=== PATIENT | female | born 1960 | race Caucasian/White ===

== ENCOUNTER 2019-07-28 11:11 | Outpatient (CLI) | payer OTHER, SELFPAY ==
--- NOTE | ~2019-07-28 | XR_ITS ---
EXAMINATION: XR lg joint inject/asp w image DATE: 07/28/2019 12:05 INDICATION: Left hip pain TECHNIQUE: A time-out was performed to verify the patient's name, date of , and procedure to b e performed. The procedure including the risks, benefits, and alternatives was discussed with the pat ient. Risks discussed included bleeding and infection. The patient understood the risks and agreed to proceed. The skin overlying the left hip joint was prepped and draped in usual sterile fashion. An esthetic was administered with 1% lidocaine subcutaneously. A 22 G needle was advanced under fluoros copic guidance into the joint. Injection of 0.8 mL of Omnipaque 240 confirmed intra-articular positi on of the needle. Subsequently, injectate consisting of 7 mm of a 5:2 mixture of 1% lidocaine:10 mg/ mL Kenalog for a total dose of 20 mg Kenalog was instilled. Washout of contrast was seen confirming i ntra-articular administration. The needle was removed and the entry site was cleaned and dressed. Th ere were no immediate complications. Fluoroscopy exposure time was 0.1 minutes. The total number of i mages was 2. FINDINGS: Real-time fluoroscopy demonstrates the needle in the left hip joint. Patient's pain prior t o procedure:3/10. Patient's pain following the procedure: 0/10. IMPRESSION: 1. Left hip joint injection of local anesthetic and steroid with decrease in the patient's presenting pain. Reviewed, dictated and finalized at location A. IMPRESSION: 1. Left hip joint injection of local anesthetic and steroid with decrease in th e patient's presenting pain.
== END 2019-07-28 11:12 | disposition home or self-care (01) ==
PROVIDERS: PCP Family Medicine Sports Medicine; Visit Provider Orthopaedic Surgery
DX: M25.552 Pain in left hip (principal)
CPT/HCPCS: 20610; 77002; J3301; Q9966

== ENCOUNTER 2019-12-23 10:21 | Outpatient (NON) | payer OTHER, SELFPAY ==
[2019-12-23 21:38] LABS: SARS-CoV-2 RNA PCR Positive
== END 2019-12-23 10:22 ==
PROVIDERS: PCP Family Medicine Sports Medicine; Visit Provider Family Medicine Sports Medicine
DX: U07.1 COVID-19 (principal)
CPT/HCPCS: 87635; C9803; U0003

== ENCOUNTER → 2020-04-25 16:12 | Outpatient (CLI) | payer OTHER, SELFPAY ==
--- NOTE | ~2020-04-25 | MM_ITS ---
EXAMINATION: MM screening hetal BI w jaycob HISTORY: Screening mammogram TECHNIQUE: Craniocaudal and mediolateral oblique 3-D tomosynthesis images were obtained and synthetic 2-D images were generated. CAD analysis was submitted and interpreted. COMPARISON: 04/25/2019 diagnostic bilateral digital mammogram and complete left breast ultrasound 07/20/2018 diagnostic left digital mammogram and limited left breast ultrasound 11/12/2017 diagnostic left digital mammogram and limited left breast ultrasound 11/05/2017 bilateral digital screening mammogram BREAST PARENCHYMAL COMPOSITION: The breasts are heterogeneously dense, which may obscure small masses .. FINDINGS: There is stable fibroglandular asymmetry. There are occasional bilateral benign microcalcif ications. There is a 1.4 cm circumscribed mass in the posterior mid to lower outer left breast, with halo sign, consistent with benign process, likely a cyst. There is no evidence of suspicious mass, calcificatio n, or architectural distortion to suggest malignancy in either breast. There has been no suspicious i nterval change. IMPRESSION: 1. No mammographic evidence of malignancy. 2. Recommend routine screening mammography in one year. BI-RADS Category 2: Benign finding(s). Reviewed, dictated and finalized at location A. R SERVICES MANAGER
== END ==
PROVIDERS: Visit Provider Obstetrics & Gynecology
DX: Z12.31 Encounter for screening mammogram for malignant neoplasm of breast (principal)
CPT/HCPCS: 77063; 77067

== ENCOUNTER → 2021-04-26 15:47 | Outpatient (CLI) | payer OTHER, SELFPAY ==
--- NOTE | ~2021-04-26 | MM_ITS ---
EXAMINATION: MM screening hetal BI w jaycob HISTORY: Screening mammogram TECHNIQUE: Craniocaudal and mediolateral oblique 3-D tomosynthesis images were obtained and synthetic 2-D images were generated. CAD analysis was submitted and interpreted. COMPARISON: 04/26/2019, 04/25/2019, 07/19/2018, 11/12/2017, 11/05/2017 BREAST PARENCHYMAL COMPOSITION: The breasts are heterogeneously dense, which may obscure small masses . FINDINGS: There are bilateral breast masses with a waxing and waning appearance, consistent with valarie gn findings. There is no evidence of suspicious mass, calcification, or architectural distortion to s uggest malignancy in either breast. There has been no suspicious interval change. IMPRESSION: 1. No mammographic evidence of malignancy. 2. Recommend routine screening mammography in one year. BI-RADS Category 2: Benign finding(s). Reviewed, dictated and finalized at location A. SERVICE TECHNICIAN
== END ==
PROVIDERS: Visit Provider Obstetrics & Gynecology
DX: Z12.31 Encounter for screening mammogram for malignant neoplasm of breast (principal)
CPT/HCPCS: 77063; 77067

== ENCOUNTER → 2022-06-27 17:12 | Outpatient (CLI) | payer OTHER, SELFPAY ==
--- NOTE | ~2022-06-27 | MM_ITS ---
EXAMINATION: MM screening hetal BI w jaycob HISTORY: Screening TECHNIQUE: Craniocaudal and mediolateral oblique 3-D tomosynthesis images were obtained and synthetic 2-D images were generated. CAD analysis was submitted and interpreted. COMPARISON: Comparison to multiple prior studies sequentially, with oldest reviewed study dated 05/2017. BREAST PARENCHYMAL COMPOSITION: The breasts are heterogeneously dense, which may obscure small masses FINDINGS: There are developing bilateral breast asymmetries centered in the upper outer quadrant of t he right breast and scattered throughout the left breast. IMPRESSION: 1. Developing bilateral breast asymmetries. 2. Additional mammographic views and possible breast ultrasound are recommended. BI-RADS Category 0: Incomplete: Needs additional imaging evaluation. Reviewed, dictated and finalized at location A. IMPRESSION: 1. Developing bilateral breast asymmetries. 2. Additional mammographic views and possible breast ultrasound are recommended . BI-RADS Category 0: Incomplete: Needs additional imaging evaluation.
== END ==
PROVIDERS: PCP Obstetrics & Gynecology; Visit Provider Obstetrics & Gynecology
DX: Z12.31 Encounter for screening mammogram for malignant neoplasm of breast (principal); R92.8 Other abnormal and inconclusive findings on diagnostic imaging of breast
CPT/HCPCS: 77063; 77067

== ENCOUNTER → 2022-07-03 08:57 | Outpatient (CLI) | payer OTHER, SELFPAY ==
--- NOTE | ~2022-07-03 | MM_ITS ---
EXAMINATION: MM diagnostic hetal BI w jaycob HISTORY: Follow-up bilateral breast asymmetries TECHNIQUE: Additional 3-D tomosynthesis images of the breasts were performed and synthetic 2-D images were generated. CAD analysis was submitted and interpreted. COMPARISON: Comparison to multiple prior studies sequentially, with oldest reviewed study dated 07/19. BREAST PARENCHYMAL COMPOSITION: The breasts are heterogeneously dense, which may obscure small masses FINDINGS: There are multiple bilateral breast masses and nodular asymmetries some of which are new, a lthough some are decreased in size compared with prior study. There are no suspicious calcifications or architectural distortion. IMPRESSION: 1. Multiple bilateral breast masses and nodular asymmetries. 2. Complete bilateral breast ultrasound recommended. BI-RADS Category 0: Incomplete: Needs additional imaging evaluation. Reviewed, dictated and finalized at location A.
== END ==
PROVIDERS: PCP Obstetrics & Gynecology; Visit Provider Obstetrics & Gynecology
DX: R92.8 Other abnormal and inconclusive findings on diagnostic imaging of breast (principal)
CPT/HCPCS: 77062; 77066; G0279

== ENCOUNTER → 2022-07-04 13:49 | Outpatient (CLI) | payer OTHER, SELFPAY ==
--- NOTE | ~2022-07-04 | US_ITS ---
US breast BI complete INDICATION: Multiple bilateral masses and asymmetries identified by mammography. TECHNIQUE: Dedicated complete bilateral breast ultrasound including all 4 quadrants in the subareolar locations COMPARISON: Comparison to multiple prior studies sequentially, with oldest reviewed study dated 12/2027. FINDINGS: Right breast: There are multiple simple and complicated cysts of the right breast. At 12:00, 2 cm fro m the nipple there is a round 4 mm hypoechoic mass without posterior features or internal vascularity . At 6:00, 2 cm from the nipple, there is an oval hypoechoic mass measuring 3 mm with parallel orient ation, no posterior features or internal vascularity. At 9:00, 2 cm from the nipple there is a round hypoechoic mass with low level internal echoes, subtle posterior acoustic enhancement and no internal vascularity. At 10:00, 5 cm from the nipple, there are 2 adjacent oval hypoechoic masses, largest me asuring 9 mm with low-level internal echoes, no posterior shadowing and no internal vascularity. Left breast: There are multiple simple and complicated cysts of the left breast. In addition the foll owing masses are seen: At 2:00, 4 cm from the nipple there is a round 6 mm mass with low level international sourcing manager al echoes, parallel orientation, no significant posterior features or internal vascularity. At 3:00, 3 cm from the nipple, there is an oval hypoechoic mass measuring 3 mm with parallel orientation, no s ignificant posterior features and no internal vascularity. IMPRESSION: 1: Multiple bilateral breast masses described above, most likely benign given their sonographic gato cteristics and multiplicity. Recommendation: Six-month follow-up diagnostic bilateral mammogram and ultrasound recommended. BI-RADS CATEGORY 3-PROBABLY BENIGN FINDING Reviewed, dictated and finalized at location A. IMPRESSION: 1: Multiple bilateral breast masses described above, most likely benign given t heir sonographic characteristics and multiplicity. Recommendation: Six-month follow-up diagnostic bilateral mammogram and ultrasou nd recommended. BI-RADS CATEGORY 3-PROBABLY BENIGN FINDING
== END ==
PROVIDERS: PCP Family Medicine; Visit Provider Obstetrics & Gynecology
DX: R92.8 Other abnormal and inconclusive findings on diagnostic imaging of breast (principal)
CPT/HCPCS: 76641

== ENCOUNTER 2023-01-23 08:42 | Outpatient (CLI) | payer OTHER, SELFPAY ==
--- NOTE | ~2023-01-23 | MMUS_ITS ---
EXAMINATION: MM diagnostic hetal BI w jaycob, US breast BI complete HISTORY: Follow-up bilateral breast masses TECHNIQUE: Additional 3-D tomosynthesis images of the breasts were performed and synthetic 2-D images were generated. CAD analysis was submitted and interpreted. High resolution bilateral complete breas t ultrasound was performed. COMPARISON: Comparison to multiple prior studies sequentially, with oldest reviewed study dated 07/19. BREAST PARENCHYMAL COMPOSITION: The breasts are heterogeneously dense, which may obscure small masses FINDINGS: MAMMOGRAPHIC FINDINGS: There are bilateral breast masses, partially obscured by fibroglandular tissue. Some of these masses are decreased in size, some are stable and some decrease in size. There are bilateral breast calcific ations. ULTRASOUND: Complete bilateral US of all 4 quadrants of the breasts and retroareolar region was reviewed. Right breast: There are multiple simple cysts of the right breast. At 4:00, 2 cm from the nipple ther e is a minimally complicated 4 mm cyst with low-level internal echoes. At 6:00, 2 cm from the nipple there is an oval hypoechoic 5 mm mass, likely a complicated cyst. At 9:00, 5 cm from the nipple there is a 4 mm complicated cyst. At 10:00, 5 cm from the nipple, there are 2 adjacent hypoechoic masses w ith posterior acoustic enhancement measuring 9 and 4 mm respectively. These are unchanged from prior examination, likely benign. Left breast ultrasound: Multiple simple and complicated cysts of the left breast are not significantl y changed. At 2:00, 4 cm from the nipple there are oval hypoechoic masses, largest measuring 8 mm, li sera complicated cysts, without significant change from prior examination. No new masses are identifi ed. IMPRESSION: 1. Probable benign bilateral breast masses. 2. Given one year of interval stability, recommend 12 month followup diagnostic bilateral mammogram a nd bilateral breast ultrasound recommended. BI-RADS category 3, probably benign findings. Reviewed, dictated and finalized at location A. IMPRESSION: 1. Probable benign bilateral breast masses. 2. Given one year of interval stability, recommend 12 month followup diagnostic bilateral mammogram and bilateral breast ultrasound recommended. BI-RADS category 3, probably benign findings.
== END 2023-01-23 08:43 ==
PROVIDERS: PCP Obstetrics & Gynecology; Visit Provider Obstetrics & Gynecology
DX: R92.8 Other abnormal and inconclusive findings on diagnostic imaging of breast (principal)
CPT/HCPCS: 76641; 77062; 77066; G0279

== ENCOUNTER 2023-06-09 11:17 | Emergency (ER) | payer OTHER, SELFPAY ==
[2023-06-09 11:41] VITALS: BP 138/72; PULSE 71; RESP 20; TEMP 36.4; O2SAT 100
[2023-06-09] MEDS: cefTRIAXone 2 GM/NS 100 ML 2 GM/100 ML BAG IVPB (12:35)
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
--- NOTE | 2023-06-09 12:59 | PC.NURSE ---
warm compress applied to left hand. Left hand red, swollen with 2 puncture sites with purulent drainage noted
[2023-06-09] MEDS: metroNIDAZOLE 500 MG TABLET PO (13:06)
--- NOTE | 2023-06-09 13:22 | PC.NURSE ---
Warm compresses to left hand x2 puncture sites. Small amount of purulent drainage noted.
[2023-06-09 14:37] VITALS: BP 140/74; PULSE 74; RESP 20; TEMP 36.6; O2SAT 100
== END 2023-06-09 14:41 | disposition home or self-care (01) ==
PROVIDERS: Emergency Provider Emergency Medicine; PCP Obstetrics & Gynecology
DX: L03.114 Cellulitis of left upper limb (principal); S61.452A Open bite of left hand, initial encounter; I10 Essential (primary) hypertension; W50.3XXA Accidental bite by another person, initial encounter
CPT/HCPCS: 96365; 99284; A9270; J0696

== ENCOUNTER 2024-04-20 07:47 | Outpatient (CLI) | payer MEDICARE, SELFPAY ==
--- NOTE | ~2024-04-20 | MMUS_ITS ---
EXAMINATION: MM diagnostic hetal BI w jaycob, US breast BI limited HISTORY: Six-month follow-up TECHNIQUE: 3-D tomosynthesis images of the breasts were performed and synthetic 2-D images were gener ated. CAD analysis was submitted and interpreted. High resolution limited bilateral breast ultrasound was performed. COMPARISON: 01/23/2023, 07/03/2022 BREAST PARENCHYMAL COMPOSITION:Dense: The breasts are heterogeneously dense, which may obscure small masses. FINDINGS: MAMMOGRAPHIC FINDINGS: Parenchymal pattern of the breast is stable from prior exam. No suspicious mass lesion or distortion seen. No suspicious microcalcifications. ULTRASOUND: Multiple subcentimeter hypoechoic lesions bilaterally are essentially stable from prior exam. Largest lesion of the right breast 9:00 position measuring 7 mm. Lesions are circumscribed and perihilar or round in orientation. No posterior shadowing evident. IMPRESSION: Multiple subcentimeters cysts or other benign appearing lesions in the breasts bilaterally, essentia lly stable from prior exam. No findings are suspicious for malignancy. BI-RADS Category 2: Benign finding(s). Reviewed, dictated and finalized at location M. GAGE CLOSING CLERK IMPRESSION: Multiple subcentimeters cysts or other benign appearing lesions in the breasts bilaterally, essentially stable from prior exam. No findings are suspicious fo r malignancy. BI-RADS Category 2: Benign finding(s).
== END 2024-04-20 07:48 | disposition home or self-care (01) ==
LOC: MICIMG 07:48
PROVIDERS: PCP Obstetrics & Gynecology; Visit Provider Obstetrics & Gynecology
DX: R92.8 Other abnormal and inconclusive findings on diagnostic imaging of breast (principal)
CPT/HCPCS: 76642; 77062; 77066; G0279

== ENCOUNTER 2025-03-25 16:58 | Emergency (ER) | payer MEDICARE, OTHER, SELFPAY ==
--- NOTE | ~2025-03-25 | XR_ITS ---
EXAMINATION: XR knee LT min 4V DATE: 03/25/2025 18:15 INDICATION: Trauma. TECHNIQUE: 4 views were obtained. COMPARISON: None. FINDINGS: No acute fracture at the left knee. Mild osteoarthritis of medial compartment. Moderate size effusion in the knee joint. IMPRESSION: 1. No acute bony lesions. Moderate effusion in the knee joint. Mild osteoarthritis of medial compartment. If symptoms are persistent and not responding to conservative treatment considered MRI. Reviewed, dictated and finalized at location T. TAL SALES EXECUTIVE IMPRESSION: 1. No acute bony lesions. Moderate effusion in the knee joint. Mild osteoarthri tis of medial compartment. If symptoms are persistent and not responding to con servative treatment considered MRI.
--- OUTSIDE RECORDS SUMMARY | 2025-03-25 17:00 | XMS_ITS | Clinical Summary ---
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 Kimberly Raines M.D. Room: [facility] ENDOSCOPY ROOM 1 Note Status: Finalized Patient Profile: This is a 63 year old female. No family history of colon cancer. Noted positive Cologuard test. Procedure: Colonoscopy Indications: Screening for colorectal malignant neoplasm, Last colonoscopy 10 years ago Referring MD: Richard Rivera M.D. Providers: Kimberly Raines M.D. Impression: - Two 2 mm polyps in the proximal ascending colonand cecum, removed with a cold biopsy forceps. Resected and retrieved. - One 14 mm polyp in the proximal sigmoid colon, removed with a cold snare. Resected andretrieved. - Two 3 to 4 mm polyps in the distal sigmoid colon, removed with a cold biopsy forceps. Resected and retrieved. - Internal hemorrhoids. Recommendation: - Await pathology results. - Repeat colonoscopy in 3 years for surveillance. Medicines: Monitored Anesthesia Care Complications: No immediate complications. Estimated Blood Loss: Estimated blood loss: none. Procedure: Pre-Anesthesia Assessment: - Prior to the procedure, a History and Physicalwas performed, and patient medications and allergieswere reviewed. The patient's tolerance of previous anesthesia was also reviewed. The risks andbenefits of the procedure and the sedation options and risks were discussed with the patient. All questions were answered, and informed consent was obtained. Prior Anticoagulants: The patient has taken noanticoagulant or antiplatelet agents. ASA Grade Assessment: II -A patient with mild systemic disease. After reviewing the risks and benefits, the patient was deemed in satisfactory condition to undergo the procedure. The benefits, risks and alternatives of theprocedure and sedation were discussed and informed consentwas obtained. All questions were answered. Please referto the signed informed consent document in the medical record. The bowel preparation used was Miralax via split dose instruction. The bowel preparation usedwas bisacodyl tablets via split dose instruction. The scope was passed under direct vision. The Pediatric Colonoscope PCF-H190L [id number] was introducedthrough the anus and advanced to the the cecum, identifiedby appendiceal orifice and ileocecal valve. Thequality of the bowel preparation was good. Bowel prep was administered using a split dose. Findings: The perianal and digital rectal examinations were normal. The cecum and appendiceal orifice appeared normal. Two semi-sessile polyps were found in the proximal ascending colonand cecum. The polyps were 2 mm in size. These polyps were removed with a cold biopsy forceps. Resection and retrieval were complete. A 14 mm polyp was found in the proximal sigmoid colon. The polyp was semi-sessile. The polyp was removed with a cold snare. Resection and retrieval were complete. The descending colon and transverse colon appeared normal. Two flat polyps were found in the distal sigmoid colon. The polypswere 3 to 4 mm in size. These polyps were removed with a cold biopsyforceps. Resection and retrieval were complete. Internal hemorrhoids were found during retroflexion. The hemorrhoids were small. Electronically signed by Kimberly Raines M.D. Kimberly Raines M.D. 02/04/2023 12:45:33 PM Number of Addenda: 0 Note Initiated On: 02/04/2023 10:20 AM Procedure Code(s): --- Professional --- 69565, Colonoscopy, flexible; with removal of tumor(s), polyp(s), or other lesion(s) by snare technique 65683, 59, Colonoscopy, flexible; with biopsy, single or multiple Diagnosis Code(s): --- Professional --- Z12.11, Encounter for screening for malignant neoplasm of colon K64.8, Other hemorrhoids D12.2, Benign neoplasm of ascending colon D12.5, Benign neoplasm of sigmoid colon CPT copyright 2020 [employer]. All rights reserved. The codes documented in this report are preliminary and upon certified medical coder reviewmay be revised to meet current compliance requirements. Recognized by the [place] [employer] for promoting quality in endoscopy Kimberly Raines MD ENDOSCOPY PROCEDURES Final Result * Hepatitis C antibody (11/27/2021 4:07 PM CDT) Hep C Ab Nonreactive Nonreactive LO BANKS Comment: Interpretive Data Nonreactive: Antibodies to HCV not detected. Does NOT exclude the possibility of recent exposure to HCV. Equivocal: Equivocal for HCV antibodies. Supplemental molecular testing will be automatically performed to determine infection status in accordance with current CDC screening recommendations. Reactive: Positive for HCV antibodies. This may represent current or past HCV infection. Supplemental molecular testing will be automatically performed to determine current infection status in accordance with current CDC screening recommendations. Interpretive data was last revised on 2019. Blood 11/27/2021 4:07 PM CDT 11/27/2021 8:27 PM CDT us Richard Rivera MD LAB MICROBIOLOGY - [place] [id number] [address] [facility] [employer] ([facility]) [place] [address] from Last 3 Months or Most Recently Relevant to Health Maintenance Insurance [facility] CHO[facility] [facility] HMO/PPO Address: [address] [address] [place] [address] MEDICARE MEDICARE PHYSICIANS [facility] [place] Advance Directives For more information, please contact: [phone] * Full Code (Latest Code Status on File) Date Activated Date Inactivated Comments 02/04/2023 10:10 AM 02/04/2023 5:19 PM Care Teams Coding Compliance Manager Relationship Specialty Start Date End Date Richard Rivera MD [address] [place] [address] PCP - General Family Medicine 05/27/21 Arya Barksdale MD [address] [address] Referring Physician Obstetrics and Gynecology 06/02/22
--- OUTSIDE RECORDS SUMMARY | 2025-03-25 17:00 | XMS_ITS | Encounter Summary ---
Author Organization [facility] Healthcare Address [address] [place] [address] Care Team Providers Care Flute Grinder Name Role Phone Richard Rivera MD Primary Care Provider [phone] Arya Barksdale MD Unavailable Encounter Details Date Type Department Care Team (Late st Contact Info) Description 03/25/2025 Telephone [facility] Medical Group Orthopedics and Sports Medicine [address] [place] [phone] Jeff Garcia PA [address] [place] [phone] Social History Tobacco Use Types Packs/Day Years Used Date Smoking Tobacco: Never Passive Smoke Exposure: Never Smokeless Tobacco: Never Social Connection and Isolation Panel Answer Date Recorded In a typical week, how many times do you talk on the phone with family, friends, or neighbors? More than three times a week 02/02/2023 How often do you get togethe r with friends or relatives? Once a week 02/02/2023 How often do you attend chur ch or adventist services? More than 4 times per year 02/02/2023 Do you belong to any clubs o r organizations such as jew groups, unions, fraternal or athletic groups, or [...] staff should administer the PHQ-9) 0 11/11/2024 [facility] Occupat ional [facility] - Occupational Stress [...] money to buy more. Never true 02/03/20 23 Within the past 12 months, t he [...] No 02/02/2023 Housing Stability Vital Sign Answer Severion e Recorded In the last 12 months, [...] place to sleep or slept in a care home (including now)? 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 [facility] Please call patient first thing Thursday morning to get her an appointment with an ISAAK on Dr. Perez's team as soon as possible. ALLATION HELPER documented in this encounter Plan of Treatment Not on file documented as of this encounter Visit Diagnoses Not on filedocumented in this encounter Care Teams Flute Grinder Relationship Specialty Start Date End Date Richard Rivera MD [address] [place] [address] PCP - General Family Medicine 05/27/21 Arya Barksdale MD [address] [address] Referring Physician Obstetrics and Gynecology 06/02/22 documented as of this encounter
[2025-03-25 17:13] VITALS: BP 139/75; PULSE 84; RESP 16; TEMP 36.3; O2SAT 100
--- NOTE | 2025-03-25 18:13 | ED_ITS ---
HPI - Extremity Injury (Lower) General Chief Complaint: Extremity Injury, Lower Stated Complaint: left knee pain Time Seen by Provider: 03/25/25 18:13 Source: patient Mode of arrival: ambulatory Limitations: no limitations History of Present Illness HPI Narrative: PATIENT HEARD POP AT THE LEFT KNEE GOING DOWN STAIRS. NO OTHER INJURIES. PAIN WORSE WITH FLEXION, AND WALKING BETTER AT REST Related Data Home Medications ?Medication ?Instructions ?Recorded ?Confirmed ?Last Taken ?Type hydrochlorothiazide 12.5 mg capsule 12.5 mg PO DAILY 0 07/20/19 11/06/20 Unknown History losartan 25 mg tablet 50 mg PO DAILY 11/06/2006/24 Unknown History calcium acetate 667 mg tablet 667 mg PO ONCE 11/15/24 Unknown History cholecalciferol (vitamin D3) 50 50 mcg PO DAILY Unknown History mcg (2,000 unit) capsule multivitamin 1 tablet PO DAILY 11/15/24 Unknown History Allergies Allergy/AdvReac Type Severity Reaction Status Date / Time amoxicillin Allergy Unknown Unknown Verified 03/25/25 17:15 clavulanic acid (From Allergy Unknown FULL BODY Verified 03/25/25 17:15 Augmentin) RASH/HIVES AMOXICILLIN TRIHYDRATE Allergy Severe HIVES Uncoded 11/15/24 14:13 POTASSIUM CLAVULANATE Allergy Severe HIVES Uncoded 11/15/24 14:13 Review of Systems Review of Systems: All systems reviewed & are unremarkable except as noted in HPI and below PMFSH Past Medical History Medical History Fibroids Hypertension Surgical History Surgical History History of dilatation and curettage History of hysteroscopy History of endometrial ablation History of colonoscopy Family History Family History Mother Hypertension Cancer Father Heart disease Grandparent Hypertension Diabetes mellitus Cancer Social History Social History Smoking status: Never smoker Alcohol intake: current Alcohol use details: Occasional Living arrangements: with family Additional living arrangements comments: , Daughter, and Granddaughter Occupation/Education: occupation 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 MUSCULOSKELETAL: MILD TENDERNESS ANTERIOR MEDIALLY, NO BRUISES, NO SWELLING, NO DEFORMITY, LIMITED RANGE OF MOTION OF FLEXION. NEUROLOGIC: ALERT AND ORIENTED ?3, HUMAN RESOURCES MANAGER MANUFACTURING IS NORMAL TESTED, NO GROSS MOTOR DEFICIT Course Vital Signs Vital signs: Vital Signs Temperature 36.3 C L 03/25/25 17:13 Pulse Rate 84 03/25/25 17:13 Respiratory Rate 16 03/25/25 17:13 Blood Pressure 139/75 03/25/25 17:13 Pulse Oximetry 100 03/25/25 17:13 Temperature 36.3 C L 03/25/25 17:13 Pulse Rate 84 03/25/25 17:13 Respiratory Rate 16 03/25/25 17:13 Blood Pressure 139/75 03/25/25 17:13 Pulse Oximetry 100 03/25/25 17:13 [facility] MDM Narrative Medical decision making narrative: LEFT KNEE PAIN GOING DOWN STAIRS. NO FALL DIFFERENTIAL DIAGNOSIS INCLUDES SPRAIN/STRAIN/FRACTURE X-RAY OF LEFT KNEE SHOWED NO ACUTE OSSEOUS ABNORMALITY, MODERATE EFFUSION Differential Diagnosis Differential Diagnosis: SPRAIN, STRAIN, FRACTURE Imaging Data Radiologist's impression: ITS Impressions Knee X-Ray 03/25/25 18:16 IMPRESSION: 1. No acute bony lesions. Moderate effusion in the knee joint. Mild osteoarthritis of medial compartment. If symptoms are persistent and not responding to conservative treatment considered MRI. Critical Care Time Critical Care Time Critical Care Time: No Discharge Plan Discharge Clinical Impression: Knee sprain Patient Disposition: Home Condition: Stable Additional Instructions: RETURN IF SYMPTOMS ARE WORSENING , CALL YOUR FAMILY PHYSICIAN FOR APPOINTMENT, TAKE TYLENOL NEEDED FOR ACHES AND PAIN, CONTINUE HOME MEDICATIONS. Patient Language: Spanish Prescriptions: New naproxen [Naprosyn] 500 mg tablet 500 mg PO BID PRN (Reason: pain) Qty: 14 0RF No Action hydrochlorothiazide 12.5 mg capsule 12.5 mg PO DAILY losartan 25 mg tablet 50 mg PO DAILY multivitamin Tablet 1 tablet PO DAILY calcium acetate 667 mg tablet 667 mg PO ONCE cholecalciferol (vitamin D3) 50 mcg (2,000 unit) capsule 50 mcg PO DAILY Follow-up/Referrals: Severiano Murray MD [Physician, Orthopedics] - 03/27/25 UNKNOWN,DOCTOR [Non-Staff]
--- OUTSIDE RECORDS SUMMARY | 2025-03-25 18:29 | XMS_ITS | Encounter Summary ---
Author Organization [facility] Healthcare Address [address] [place] [address] Care Team Providers Care Deputy Sheriff K9 Handler Name Role Phone Richard Rivera MD Primary Care Provider [phone] Arya Barksdale MD Unavailable [phone] Encounter Details Date Type Department Care Team (Late st Contact Info) Description 03/25/2025 Telephone [facility] Medical Group Orthopedics and Sports Medicine [address] [place] [phone] Jeff Garcia PA [address] [place] [phone] Social History Tobacco Use Types Packs/Day [...] often do you attend chur ch or church services? More than 4 times per year 02/02/2023 Do you belong to any clubs o r organizations such as confucianism groups, unions, fraternal or athletic groups, or [...] staff should administer the PHQ-9) 0 11/11/2024 [facility] of Occupat ional Health - [...] place to sleep or slept in a alf (including now)? 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 [facility] Please call patient first thing Thursday morning to get her an appointment with an ISAAK on Dr. Perez's team as soon as possible. K STAPLER documented in this encounter Plan of Treatment Not on file documented as of this encounter Visit Diagnoses Not on filedocumented in this encounter Care Teams Deputy Sheriff K9 Handler Relationship Specialty Start Date End Date Richard Rivera MD [address] [place] [address] PCP - General Family Medicine 05/27/21 Arya Barksdale MD [address] [address] Referring Physician Obstetrics and Gynecology 06/02/22 documented as of this encounter
--- OUTSIDE RECORDS SUMMARY | 2025-03-25 18:29 | XMS_ITS | Clinical Summary ---
Author Organization [place] [address] [place] Address [address] [place] [id number] Care Team Providers Care Metal Fabricating Supervisor Name Role Phone Richard Rivera MD Primary Care Provider [phone] Arya Barksdale MD Unavailable [phone] Allergies Active Allergy Reactions Criticality Noted Date [...] months Assessment & Plan (05/31/2021 11:00 AM SEGMENTAL PAVER INSTALLER): A initial well visit to establish care [...] Type Department Care Team Description 03/25/2025 Telephone [facility] [address] [place] [address] [address] [place] [phone] Jeff Garcia PA 03/14/2025 10:00 AM SEGMENTAL PAVER INSTALLER - 03/14/2025 11:59 PM SEGMENTAL PAVER INSTALLER Hospital Encounter [facility] [address] [place] [address] [address], [place] [phone] Discharge Disposition: Discharge to home or self care 03/14/2025 10:00 AM SEGMENTAL PAVER INSTALLER Office Visit [facility] [address] [place] [address] [address], [place] [address] Sarah Ellis PA Primary localized osteoarthritis of left hip (Primary Dx) 02/03/2025 Telephone [facility] Primary Care at [address] [address] Richard Rivera MD Fe appt with Dr Rivera has been cancelled 01/09/2025 9:15 AM CDT Ancillary Procedure [facility] Imaging at [address] [address] Mass of foot, right 01/09/2025 8:45 AM CDT Office Visit [facility] at [address] [address] Richard Rivera MD Mass of foot, right (Primary Dx) 01/09/2025 Patient Message [facility] at [address] [address] Richard Rivera MD Referral for podiatry 01/09/2025 Results Follow-Up [facility] at [address] [address] Richard Rivera MD XR Foot [...] UTERUS COLONOSCOPY 7 or 8 yrs ago [place] COLONOSCOPY 02/04/2023 [place] FLUORO GUIDED INJECTION HIP [...] (Added by TW Conv) Uterine cancer Mother Lydai Family histor y of malignant neoplasm of [...] How often do you attend chur or confucianist services? More than 4 times per year 02/02/2023 Do you belong to any clubs o r organizations such as lutheran groups, unions, fraternal or athletic groups, or [...] staff should administer the PHQ-9) 0 11/11/2024 [facility] - Occupational Stress [...] place to sleep or slept in a detention (including now)? 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 on file Not on file Last Filed Vital Signs Vital Sign Reading Time Taken Comments Blood Pressure 150/86 03/14/2025 9:53 AM SEGMENTAL PAVER INSTALLER Pulse 64 03/14/2025 9:53 AM SEGMENTAL PAVER INSTALLER Temperature 35.9 C (96.6 F) 01/09/2025 8:40 AM CDT Respiratory Rate 16 01/09/2025 8:40 AM CDT Oxygen Saturation 98% 01/09/2025 8:40 AM CDT Inhaled Oxygen Concentration - - Weight 74.4 kg (164 lb) 03/14/2025 9:53 AM SEGMENTAL PAVER INSTALLER Height 167.6 cm (5' 6) 03/14/2025 9:53 AM SEGMENTAL PAVER INSTALLER Body Mass Index 26.47 03/14/2025 9:53 AM SEGMENTAL PAVER INSTALLER Plan of Treatment Health Maintenance Due Date [...] Read Routine (OP Routine) 03/14/2025 10:03 AM SEGMENTAL PAVER INSTALLER Primary localized osteoarthritis of left hip AL ARTHROCENTESIS ASPIR&/INJ MAJOR JT/BURSA W/O US Routine 03/14/2025 10:00 AM SEGMENTAL PAVER INSTALLER Primary localized osteoarthritis of left hip XR FOOT RIGHT 3 OR MORE VIEWS Schedule Routine, Read Routine (OP Routine) 01/09/2025 9:14 AM CDT Mass of foot, right DEXA AXIAL SKELETON BONE DENSITY 1 OR MORE SITES Schedule Routine, Read Routine (OP Routine) 07/25/2024 2:07 PM CDT Screening for osteoporosis Other specified menopausal and perimenopausal disorders HM MAMMOGRAPHY Routine 04/20/2024 3:51 PM SEGMENTAL PAVER INSTALLER HM PAP SMEAR WITH HPV Routine 04/12/2024 9:04 AM SEGMENTAL PAVER INSTALLER COLONOSCOPY 02/04/2023 10:20 AM CDT HEPATITIS C ANTIBODY Routine 11/27/2021 4:07 PM CDT Encounter for hepatitis C screening test for low risk patient from Last 3 Months or Most Recently Relevant to Health Maintenance Results * XR Hip Left 2 or 3 Views (03/14/2025 10:03 AM SEGMENTAL PAVER INSTALLER) Anatomical Region Laterality Modality Lower Extremities, Hip, Pelvis Left D igital Radiography Narrative 03/14/2025 10:29 AM SEGMENTAL PAVER INSTALLER Radiographs taken of the left hip today reveal moderate degenerative changes with subchondral sclerosis, osteophyte formation, and diminished joint space. us Sarah QIU IMG XR PROCEDURES Fin al Result * AL ARTHROCENTESIS ASPIR&/INJ MAJOR JT/BURSA W/O US (03/14/2025 10:00 AM SEGMENTAL PAVER INSTALLER) Narrative Mark Perez MD - 03/14/2025 10:00 AM SEGMENTAL PAVER INSTALLER Mark Perez MD 03/15/2025 1:52 PM Greater [...] Sony Griffin M.D. RIKA T: Report ID: [id number] Reading Location: [id number] Procedure Note Sony Griffin MD - 01/09/2025 [...] signed by Sony MELÉNDEZ T: Report ID: [id number] Reading Location: [id number] us Richard Rivera MD IMG XR PROCEDURES [...] with given history of: screen osteoporosis Postmenopausal Premises Technician/Model: [employer] SL (S/N [id number]) Facility LSC value of 0.022 for the [...] Audi Duncan M.D. MF: SUSHILA Report ID: [id number] Reading Location: [place] [address] Procedure Note Audi Duncan MD - 07/25/2024 EXAM DESCRIPTION: DEXA AXIAL SKELETON BONE DENSITY 1 OR MORE SITES REASON FOR STUDY: 64 y/o year old F with given history of: screen osteoporosis Postmenopausal Premises Technician/Model: [employer] SL (S/N [id number]) Facility LSC value of 0.022 for the [...] Audi Duncan M.D. MF: SUSHILA Report ID: [id number] Reading Location: [place] [address] Richard Rivera MD IMG DXA PROCEDURES Final Re sult * HM MAMMOGRAPHY (04/20/2024 3:51 PM SEGMENTAL PAVER INSTALLER) Historical Provider HEALTH MAINTENANCE Final Result * HM PAP SMEAR WITH HPV (04/12/2024 9:04 AM SEGMENTAL PAVER INSTALLER) Scribed Pap Smear w/HPV Normal Jordan Kumar MD HEALTH MAINTENANCE Final Result * COLONOSCOPY (02/04/2023 10:20 AM CDT) Anatomical Region Laterality Modality Other Narrative Procedure Note Kimberly Raines MD - 02/04/2023 10:20 AM CDT [facility] Patient Name: Courtney Briggs Procedure Date: 02/04/2023 10:20 AM Date of : 1960 Admit Type: Outpatient Age: 63 Gender: Female Attending MD: Kimberly Raines M.D. Room: [facility] RO[facility] 1 Note Status: Finalized Patient [...] under direct vision. The Pediatric Colonoscope [id number]-[id number] was introducedthrough the anus and advanced to [...] 10:20 AM Procedure Code(s): --- Professional --- 22574, Colonoscopy, flexible; with removal of tumor(s), polyp(s), or other lesion(s) by snare technique 42697, 59, Colonoscopy, flexible; with biopsy, single or multiple Diagnosis Code(s): --- Professional --- Z12.11, Encounter for screening for malignant neoplasm of colon K64.8, Other hemorrhoids D12.2, Benign neoplasm of ascending colon D12.5, Benign neoplasm of sigmoid colon CPT copyright 2020 [employer]. All rights reserved. The codes documented in this report are preliminary and upon stripper shovel operator reviewmay be revised to meet current compliance requirements. Recognized by the [employer] for promoting quality [...] MICROBIOLOGY - [place] [address] [address] [place] [place] [place] [address] from Last 3 Months or Most Recently Relevant to Health Maintenance Insurance [facility] CHOICE PLUS MEDICARE MEDICARE PHYSICIANS [facility] [place] Advance Directives For more information, please contact: [phone] * Full Code (Latest Code Status on File) Date Activated Date Inactivated Comments 02/04/2023 10:10 AM 02/04/2023 5:19 PM Care Teams Metal Fabricating Supervisor Relationship Specialty Start Date End Date Richard Rivera MD [address] [place] [address] PCP - General Family Medicine 05/27/21 Arya Barksdale MD [address] [address] Referring Physician Obstetrics and Gynecology 06/02/22
--- OUTSIDE RECORDS SUMMARY | 2025-03-25 18:29 | XMS_ITS | Clinical Summary ---
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 This disclosure is being madepursuant to the Care Everywhere program and may not contain all information available regarding this patient. Last updated 17.[facility] [employer] Allergies Active Allergy Reactions Criticality Noted Date Comments Augmentin 12/27/2016 Medications * Be aware that medications may not be up to date on this document. Alwaysverify current medications with the patient. No known medications Immunizations Immunization Administration Dates Next Due INFLUENZA VACCINE, QUADR. (F LUZONE; FLULAVAL; FLUARIX; AFLURIA QUADRIVALENT; 6MO+), 0.5 ML (IIV4) 12/27/2016 TDAP (7yrs+) 12/27/2016 Social History Tobacco Use Types Packs/Day Years Used Date Smoking Tobacco: Never Assessed Comments No Sex and Gender Information Value Date Recorded Sex Assigned at Not on file Legal Sex Female 11:13 AM CDT Gender Identity Not on file Sexual Orientation Not on file Last Filed Vital Signs Vital Sign Reading Time Taken Comments Blood Pressure 118/74 06/23/2018 3:59 PM CDT Pulse 74 06/23/2018 3:59 PM CDT Temperature 37.2 C (98.9 F) 06/23/2018 3:59 PM CDT Respiratory Rate 16 06/23/2018 3:59 PM CDT Oxygen Saturation 98% 06/23/2018 3:59 PM CDT Inhaled Oxygen Concentration - - Weight 62.6 kg (138 lb) 06/23/2018 3:59 PM CDT Height 170.2 cm (5' 7) 06/23/2018 3:59 PM CDT Body Mass Index 21.61 06/23/2018 3:59 PM CDT Plan of Treatment Health Maintenance Due Date Last Done Comments BONE DENSITY TESTING 1960 COLOGUARD (AGES 45-75) - COL ON CA SCREENING 1960 COLON MONITORING 1960 COLONOSCOPY - COLON CA SCREENING 1960 CT COLONOGRAPHY - COLON CA SCREENING 1960 Colorectal Cancer Screening 1960 FIT - COLON CA SCREENING 1960 FLEX SIG - COLON CA SCREENING 1960 LIPID TESTING 1960 MAMMOGRAM 1960 HEPATITIS C SCREENING 01/27/1977 PNEUMOCOCCAL VACCINE 50+ (1 of 1 - PCV) 2009 ZOSTER VACCINE (1 of 2) 2009 DEPRESSION SCREENING 04/06/2024 COVID-19 VACCINE (1 - 2024-2 6 season) 2024 INFLUENZA VACCINE (#1) 2024 12/27/2016 DTAP/TDAP/TD VACCINES (2 - T d or Tdap) 12/27/2026 12/27/2016 Respiratory Syncytial Virus (RSV) Vaccine Pt: or over 60 yrs (1 - 1-dose 75+ series) 2034 HEPATITIS B VACCINE Aged Out No longe r eligible based on patient's age to complete this topic HIB VACCINE Aged Out No longer eligi ble based on patient's age to complete this topic HPV VACCINE Aged Out No longer eligi ble based on patient's age to complete this topic MENINGOCOCCAL (Group B) VACC INE SHARED DECISION-MAKING Aged Out No longer eligibl e based on patient's age to complete this topic MENINGOCOCCAL GROUPS A/C/Y/W VACCINE Aged Out No longer eligible b ased on patient's age to complete this topic Insurance [employer] Care Teams Modern 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
[2025-03-25] MEDS: IBUPROFEN 600 MG TABLET PO (18:51)
[2025-03-25 19:02] VITALS: BP 128/76; PULSE 68; RESP 18; TEMP 36.6; O2SAT 98
== END 2025-03-25 20:09 | disposition home or self-care (01) ==
PROVIDERS: Emergency Provider Emergency Medicine; PCP Family Medicine
DX: S83.92XA Sprain of unspecified site of left knee, initial encounter (principal); I10 Essential (primary) hypertension; M17.12 Unilateral primary osteoarthritis, left knee; Z79.899 Other long term (current) drug therapy; X50.9XXA Other and unspecified overexertion or strenuous movements or postures, initial encounter
CPT/HCPCS: 73564; 99283; A9270